=== PATIENT | female | born 1950 | race Caucasian/White ===

== ENCOUNTER 2020-06-09 08:03 | Outpatient (CLI) | payer MEDICARE, SELFPAY ==
--- NOTE | ~2020-06-09 | MR_ITS ---
EXAMINATION: MR lumbar spine wo [facility] EXAM DATE: 06/09/2020 08:47 INDICATION: Bilateral foot tingling, paresthesia since December, worsening. TECHNIQUE: Multi-sequential, multiplanar MR images of the lumbar spine were obtained without contrast . Sagittal T1, T2, T2 fat saturation images. Axial T2 weighted images. Comparison is made to prior examination from 12/29/2017. FINDINGS: There is moderate disc disease at L5-S1, mild to moderate L1-L3 and L4-5. There is 3 mm ant erolisthesis L4 on L5, 2 mm retrolisthesis L1 on L2 and L2 on L3. Some endplate degenerative signal c hanges L5-S1. The conus medullaris terminates at the L1/2 level and has normal signal intensity and m orphology. Paraspinal soft tissue is unremarkable. There are no suspicious marrow signal abnormaliti es. Level by level evaluation: T12-L1: Disc does not extend beyond the endplate margin. Facet arthropathy: Minimal. Neural foraminal stenosis: No stenosis. Central canal stenosis: No stenosis. L1-L2: There is a mild diffuse disc bulge. Facet arthropathy: Mild. Neural foraminal stenosis: Mild left. Central canal stenosis: Mild. L2-L3: There is a mild to moderate diffuse disc bulge. Facet arthropathy: Mild to moderate. Neural foraminal stenosis: Mild to moderate bilateral. Central canal stenosis: Mild to moderate. L3-L4: There is a mild diffuse disc bulge. Facet arthropathy: Mild to moderate. Neural foraminal stenosis: Mild to moderate bilateral, right greater than left. Central canal stenosis: Mild. L4-L5: There is a mild to moderate diffuse disc bulge. Facet arthropathy: Moderate to severe right, moderate left. Neural foraminal stenosis: Mild to moderate bilateral. Central canal stenosis: Mild to moderate. L5-S1: There is a mild to moderate diffuse disc bulge. Facet arthropathy: Mild to moderate. Neural foraminal stenosis: Moderate bilateral. Central canal stenosis: Mild to moderate. Compared to prior study, difficult to appreciate any significant interval change. IMPRESSION: 1. Overall moderate lumbar spondylosis as detailed above. Reviewed, dictated and finalized at location G.
== END 2020-06-09 08:04 | disposition home or self-care (01) ==
LOC: ANHIMG 08:07
PROVIDERS: PCP Family Medicine; Visit Provider Physician Assistant Medical
DX: R20.2 Paresthesia of skin (principal); M47.816 Spondylosis without myelopathy or radiculopathy, lumbar region
CPT/HCPCS: 72148

== ENCOUNTER → 2021-05-01 13:51 | Outpatient (CLI) | payer MEDICARE, SELFPAY ==
--- NOTE | ~2021-05-01 | XR_ITS ---
EXAMINATION: XR lumbar spine 2-3V DATE: 05/01/2021 14:10 INDICATION: Low back pain TECHNIQUE: Anteroposterior and lateral views of the lumbar spine, and cone-down lateral view of the l umbosacral junction were obtained. COMPARISON: MRI, 06/09/2020 FINDINGS: There are 4 mm of unchanged anterolisthesis of L4 on L5. There is stable moderate to severe loss of intervertebral disc space height at L5-S1. There is mild to moderate loss of vertebral disc space height at L1-2, L2-3, and L4-5. There is no fracture. The vertebral body heights are normal. Th ere is moderate facet osteoarthritis of the lower lumbar spine. A large volume of colonic stool is pr esent. IMPRESSION: 1. Moderate lumbar spondylosis without acute findings or significant interval change. Reviewed, dictated and finalized at location A.
== END ==
PROVIDERS: PCP Physician Assistant; Visit Provider Physician Assistant
DX: M47.26 Other spondylosis with radiculopathy, lumbar region (principal)
CPT/HCPCS: 72100

== ENCOUNTER → 2021-05-15 07:48 | Outpatient (CLI) | payer MEDICARE, SELFPAY ==
--- NOTE | ~2021-05-15 | MR_ITS ---
EXAMINATION: MR lumbar spine wo con DATE: 05/15/2021 08:26 INDICATION: Lumbar radiculopathy. TECHNIQUE: Magnetic resonance imaging (MRI) of the lumbar spine was performed without intravenous con trast. Sequences included sagittal T2-weighted FSE, sagittal T2-weighted FS FSE, sagittal T1-weighted FSE, and axial T2-weighted FSE. COMPARISON: Lumbar spine MRI 06/09/2020 FINDINGS: There is 3 mm retrolisthesis of L1 on L2 and L2 on L3 and 3 mm anterolisthesis of L4 on L5. There are Schmorl's nodes at multiple levels. There is moderately decreased disc height at L1-L2 and L2-L3, mildly decreased disc height at L3-L4 and L4-L5, and severely decreased disc height at L5-S1. The distal spinal cord signal intensity is normal. The conus medullaris is at L1. There is a 3.1 cm cyst in right kidney. The following disc levels are specifically discussed: L1-L2: The disc is bulging and has an annular fissure. There is mild bilateral facet joint osteoarthr itis. There is mild bilateral neural foraminal stenosis. There is mild central canal stenosis. L2-L3: The disc is bulging and has an annular fissure. There is mild bilateral facet joint osteoarthr itis. There is moderate bilateral neural foraminal stenosis. There is mild central canal stenosis. L3-L4: The disc is bulging. There is mild right and moderate left facet joint osteoarthritis. There i s moderate bilateral neural foraminal stenosis. There is mild central canal stenosis. L4-L5: The disc is bulging and has an annular fissure. There is severe bilateral facet joint osteoart hritis. There is mild bilateral neural foraminal stenosis. There is mild central canal stenosis. L5-S1: The disc is bulging and has an annular fissure. There is severe bilateral facet joint osteoart hritis. There is moderate bilateral neural foraminal stenosis. There is mild central canal stenosis. IMPRESSION: 1. Severe lumbar spondylosis, stable from 06/09/2020. Reviewed, dictated and finalized at location A.
== END ==
PROVIDERS: PCP Family Medicine; Visit Provider Physician Assistant
DX: M47.26 Other spondylosis with radiculopathy, lumbar region (principal)
CPT/HCPCS: 72148

== ENCOUNTER → 2021-05-20 14:07 | Outpatient (CLI) | payer MEDICARE, SELFPAY ==
--- NOTE | ~2021-05-20 | XR_ITS ---
EXAMINATION: XR hip LT min 2V DATE: 05/20/2021 14:26 INDICATION: Left hip pain. TECHNIQUE: 2 views of left hip were obtained. COMPARISON: Lumbar spine MRI 05/15/2021 FINDINGS: Bone alignment is normal. No fracture. Left hip joint space is normal. There is severe lumb ar spondylosis. IMPRESSION: 1. Normal left hip. Reviewed, dictated and finalized at location B. IMPRESSION: 1. Normal left hip.
== END ==
PROVIDERS: PCP Family Medicine; Visit Provider Family Medicine
DX: M25.559 Pain in unspecified hip (principal)
CPT/HCPCS: 73502

== ENCOUNTER 2023-04-27 12:26 | Outpatient (CLI) | payer MEDICARE, SELFPAY ==
--- NOTE | 2023-04-27 12:32 | ECG_ITS ---
Measurements Intervals [place] Rate: 70 P: 20 MN: 129 QRS: -5 QRSD: 87 T: 14 QT: 390 QTc: 423 Interpretive Statements SINUS RHYTHM BORDERLINE R WAVE PROGRESSION, ANTERIOR LEADS BORDERLINE T WAVE ABNORMALITY- ANTEROLAT/INF LEADS BASELINE ARTIFACT- I, II, III, AVR, AVL, AVF BORDERLINE ECG NO PREVIOUS ECG AVAILABLE FOR COMPARISON Electronically Signed On 04-27-2023 13:02:55 CDT by Julio Serrano D.O.
== END 2023-04-27 12:27 | disposition home or self-care (01) ==
PROVIDERS: PCP Family Medicine; Visit Provider Surgery
DX: E78.2 Mixed hyperlipidemia (principal); R94.31 Abnormal electrocardiogram [ECG] [EKG]
CPT/HCPCS: 93005

== ENCOUNTER 2023-05-03 01:38 | Day surgery (SDC) | payer MEDICARE, SELFPAY ==
--- NOTE | 2023-04-26 14:08 | PC.NURSE ---
Report to the Outpatient Waiting Room, entrance under the green pavilion located off [facility], at time _1000 on date __05/03/23 . Planned Procedure Time: ___1200 . Time changes happen often and if your time is changed the preop area will call you the afternoon before. - You and your visitor will be asked to self-screen and do not enter if you have any COVID symptoms. - A mask is optional within the hospital at this time. Patients may have clear liquids (water, carbonated beverages, clear teas, apple juice) until 3 hours prior to surgery with a maximum of 20 ounces. - No food from midnight until time of surgery - Infants may have breast milk until 4 hours before surgery, infant formula 6 hours prior to surgery. - Children will be allowed to drink immediately following surgery. If applicable, please bring a bottle or sippy cup to assist with drinking. Juice, water, soda, and popsicles are readily available. For infants on formula, please bring formula the day of surgery. Pacifiers are allowed. Take the following medications with a SIP of water the morning of surgery: ALPRAZOLAM IF NEEDED,LEVOTHYROXINE,VENLAFAXINE,SYMBICORT DO NOT STOP ANY OF YOUR OTHER PRESCRIPTION MEDICATIONS PRIOR TO SURGERY ?EXCEPT THE FOLLOWING Medications to discontinue per physician ____ALL VITAMINS/SUPPLEMENTS AND ALEVE LAST DOSE 04/25/23 PER PATIENT Please no make-up, nail citizen of [place], hairspray, perfume, deodorant, or body powder the day of surgery. No jewelry (including any body piercings) or valuables the day of surgery, leave them at home. Please take a shower or bath the night before, or the morning of, surgery with an antibacterial soap. Wear comfortable, loose fitting clothing. Children are encouraged to wear pajamas. - Jewelry must be removed prior to entering the operating room. Rings and piercings that are not removed may be cut off. - The hospital will not accept responsibility for valuables. - Please leave all valuables, including medications, at home the day of surgery. HIBICLENS SHOWER MORNING OF SURGERY If you are going home after surgery, a licensed bulk tank driver must drive you home. - NO public transportation without another adult if you receive anesthesia. - We recommend that an adult stay with you for 24 hours following discharge. - We also recommend that you do not drive, make important decision, drink alcoholic beverages, or take any drugs that were not prescribed by your health care provider for at least 24 hours after your discharge time. For Pediatric surgeries, we recommend two adults accompany the child home. Follow any additional instructions given to you from your surgeon. If you or anyone in your household have experienced Covid symptoms in the past week, please notify your surgeon or the nurse liaison at the phone number below for possible testing. Telephone instructions given to ___PATIENT and asked if any additional questions and then verbalized understanding. Patient advised to call surgeon office or pre surgery nurse liaison [phone] if any additional questions.
[2023-04-26 14:16] VITALS: BMI 25.4
[2023-05-03] VITALS (8 sets, daily range): BP systolic 103–148; BP diastolic 55–67; PULSE 68–75; RESP 12–16; TEMP 36.2–36.4; O2SAT 97–100
--- NOTE | 2023-05-03 09:10 | WPDANESEPPF ---
Anes - Initial Pre Proc Eval Procedure: Operation Date: 05/03/23 12:00 Proposed Procedures p Excision of Left Abdominal Mass, Excision of Umbilical Cyst, - Sohail Bonds DO s Possible Umbilical Hernia Repair - Sohail Bonds DO Date/Time: 05/03/23 09:10 Surgeon: Sohail Bonds DO Pre Op Diagnosis: umbil cyst 1.cm umbil.hernia, abdominal mass 1.5cm Patient Data Age: 72 Gender: F Height: 1.63 m Weight: 67.2 kg Allergies Allergy/AdvReac Type Severity Reaction Status Date / Time amoxicillin Allergy Unknown rash Verified 05/03/23 10:28 atorvastatin Allergy Unknown Muscle pain Verified 05/03/23 10:28 cefaclor Allergy Unknown urticaria Verified 05/03/23 10:28 clarithromycin Allergy Unknown rash Verified 05/03/23 10:28 doxycycline Allergy Unknown Confusion Verified 05/03/23 10:28 erythromycin base Allergy Unknown Hypotension Verified 05/03/23 10:28 shrimp Allergy Unknown Hives Verified 05/03/23 10:28 vilazodone Allergy Unknown intoler Verified 05/03/23 10:28 ORAL DYE AdvReac Intermediate CONFUSION Uncoded 04/26/23 13:48 Home Medications Medication Instructions Recorded Confirmed Type ProAir HFA 90 mcg/actuation 2 inhalation inhalation Q6-8H PRN 12/28/19 05/03/23 Rx aerosol inhaler (albuterol sulfate) bronchospasm #8.5 grams loratadine 10 mg tablet (Claritin) 10 mg PO DAILY 11/12/20 05/03/23 History meclizine 25 mg tablet 25 mg PO PRN PRN NAUSEA/VOMITING 11/12/20 05/03/23 History naproxen sodium 220 mg tablet 220 mg PO BID PRN Pain 11/12/20 05/03/23 History (Aleve) psyllium seed (sugar) oral powder 1 tbsp PO DAILY 11/12/20 05/03/23 History (Metamucil (sugar) oral powder) zinc acetate 50 mg (zinc) capsule 50 mg PO DAILY 11/12/20 05/03/23 History (Galzin) venlafaxine 75 mg tablet See Rx Instructions .Route 05/21/22 05/03/23 Rx .COMPLEX #180 tabs alprazolam 0.25 mg tablet 0.25 mg PO BID #60 tabs 12/01/22 05/03/23 Rx budesonide-formoterol HFA 160 2 puff inhalation Q12H #10.2 grams 02/08/23 05/03/23 Rx mcg-4.5 mcg/actuation aerosol inhaler (Symbicort) levothyroxine 25 mcg tablet See Rx Instructions .Route 04/21/23 05/03/23 Rx .COMPLEX #100 tabs cholecalciferol (vitamin D3) 50 50 mcg PO DAILY 04/26/23 05/03/23 History mcg (2,000 unit) capsule imgaqbbf-[id number]-[id number] C 250 3 tablet PO DAILY 04/26/23 05/03/23 History mg-herbal no.124 11.66 mg chewable tablet (Airborne Gummy) omeprazole 20 mg capsule,delayed 20 mg PO DAILY 04/26/23 05/03/23 History release pitavastatin calcium 1 mg tablet 1 mg PO QMWF 04/26/23 05/03/23 History (Livalo) vitamin B complex 1 cap PO DAILY 04/26/23 05/03/23 History Patient hx anesthesia problems: none Family hx anesthesia problems: none Results Review: All pre-operative results and documents have been reviewed as part of the pre-operative evaluation. [facility] Past Medical History Medical History (Updated 05/03/23 @ 09:10 by Mike Gamboa, ) Acid reflux Actinic keratoses Actinic keratosis due to exposure to sunlight Anxiety Arthritis Asthma Asthmatic bronchitis Cataract, bilateral Cervical radiculopathy Diverticulosis Hypothyroidism, unspecified Migraines Mixed hyperlipidemia Osteopenia Piriformis syndrome Seborrheic keratoses, inflamed Torn meniscus Trochanteric bursitis left Vertigo Surgical History Surgical History History of breast biopsy History of dilation and curettage History of endometrial ablation History of hysterectomy, supracervical History of tubal ligation [place] teeth removed Family History Family History Mother Hypertension Cerebrovascular accident Father Hypertension Cerebrovascular accident High cholesterol Social History Social History Smoking packs per day: 1 Smoking cigarettes per day: 20.0 Years
[2023-05-03] MEDS: LACTATED RINGERS 1,000 ML 30 ML IV CONT (10:39)
[2023-05-03] MEDS: KETOROLAC 15 MG/ML VIAL (*BKC) IV PUSH (10:57)
[2023-05-03] MEDS: ACETAMINOPHEN 500 MG TABLET 1000 MG PO (10:58)
--- NOTE | 2023-05-03 11:42 | WPDHPUPDATE1 ---
History and Physical Update Update Date/Time: 05/03/23 11:42 History and Physical has been reviewed, including an updated exam of the patient. There are NO changes in the patient's condition. Risks, benefits, and alternatives have been discussed and questions answered. Patient agrees to proceed with procedure.
[2023-05-03] MEDS: ceFAZolin 2 GM/D5W 50 ML 2 GM/50 ML BAG IVPB (11:59)
[2023-05-03] MEDS: LIDO 1%/EPINEPHRINE 1:100,000 50 ML VIAL 30 ML INFILTRATE (12:20)
--- NOTE | 2023-05-03 12:42 | W.PM.PROC2 ---
Procedure Note - Detailed Date of Procedure 05/03/23 Pre-op Diagnosis 1. 1 cm umbilical cyst 2. Umbilical hernia 3. 1.5 cm left subcostal abdominal wall mass Post-op Diagnosis Same Procedure Performed 1. Open 1 cm umbilical hernia repair 2. Excision of 1 cm umbilical cyst 3. Excision of 1.5 cm left subcostal abdominal wall mass Surgeon Sohail Bonds, DO Anesthesia General and Local (0.5% bupivacaine with epinephrine) Indications This is a 72-year-old woman who presented with abdominal wall mass in the left subcostal region and periumbilical region. She had some pain with activity in the periumbilical region as well. She was found to have a 1 cm umbilical cyst but also appeared to have a slight defect just deep to this consisting of likely umbilical hernia containing fatty tissue. She also had a 1.5 cm left subcostal abdominal wall mass that was consistent a lipoma. Discussions were made with the patient about treatment options and decision was made to proceed with excision of the 1 cm umbilical cyst, excision of 1.5 cm left upper quadrant abdominal wall mass, and possible open umbilical hernia repair. Findings A 1.5 cm subcutaneous lipoma was identified in the left subcostal region. The 1 cm umbilical cyst was excised and just deep to this there did appear to be a 1 cm umbilical hernia. The umbilical hernia was repaired using Ethibond ouztgt-em-[id number] sutures. Description of Procedure Procedure as well as risks, benefits, and alternatives were discussed with the patient. Written consent was obtained and placed in chart prior to procedure. Patient was brought back to surgical suite. She was placed in supine position on the operating table. Time-out was done to confirm patient and procedure. She was then intubated by the anesthesia department. Her abdomen was prepped and draped in sterile fashion using chlorhexidine prep. A% bupivacaine with epinephrine was infiltrated locally around the 2 areas concern. A 2 cm oblique incision was made in the left subcostal region directly over the mass using a 15 blade scalpel. Electrocautery was used for hemostasis and for dissection through the subcutaneous tissue. Mass was identified and appeared to be a lipoma. This was excised completely using electrocautery. He was removed and sent to the lab for pathology. The wound edges were then inspected hemostasis appeared adequate. Obi's fascia was reapproximated using 3-0 Vicryl simple interrupted sutures. Skin was then approximated using 4 Monocryl running subcuticular suture. Exofin glue was then applied on top. I then moved over to the umbilical region. A 1 cm elliptical incision was made using a 15 blade scalpel around the umbilical cyst. The cyst was sharply excised using the 15 blade scalpel. He was removed and sent to lab for pathology. The wound edges were inspected and hemostasis was achieved with electrocautery. I then inspected just deep to this and there did appear to be a hernia sac and small 1 cm umbilical hernia. The hernia sac was reduced and the fascial edges were cleared circumferentially using electrocautery. This appeared small enough to repair primarily. 0 Ethibond bxnhpe-de-ovuha sutures were placed to approximate the fascia in a transverse fashion. A total of 2 sutures were placed to bring the fascia together without tension. The sutures were tied down in place. The repair was inspected and appeared secured. The umbilical stalk was then reapproximated to the fascia using a 3-0 Vicryl simple interrupted suture. Deep dermis was approximated using 3-0 Vicryl simple interrupted sutures. Skin edges were then reapproximated using 4-0 Monocryl running subcuticular suture. Exofin glue was then applied on top patient was then awakened from anesthesia extubated, and transferred Estimated Blood Loss 5 Pathology Yes (Left upper quadrant abdominal wall mass, umbilical cyst) Complications No immediate complications Condition Stable Disp
[2023-05-03] MEDS: ONDANSETRON INJ 4 MG/2 ML VIAL IV PUSH (13:50)
== END 2023-05-03 14:42 | disposition home or self-care (01) ==
PROVIDERS: PCP Family Medicine; Visit Provider Surgery
PROC: (CPT 22902; principal; 2023-05-03 12:00)
PROC: (CPT 22902; 2023-05-03 12:00)
DX: K42.9 Umbilical hernia without obstruction or gangrene (principal); D17.1 Benign lipomatous neoplasm of skin and subcutaneous tissue of trunk; E78.2 Mixed hyperlipidemia; L72.0 Epidermal cyst; F41.9 Anxiety disorder, unspecified; J45.909 Unspecified asthma, uncomplicated; Z79.51 Long term (current) use of inhaled steroids; Z87.891 Personal history of nicotine dependence
CPT/HCPCS: 22902; 49591; 88304; 88305; A9270; J0690; J1100; J1885; J2405; J2704; J3010; J7120

== ENCOUNTER 2023-11-04 05:54 | Day surgery (SDC) | payer MEDICARE, SELFPAY ==
[2023-10-15 09:26] VITALS: BMI 25.7
[2023-10-18 13:48] VITALS: BMI 25.7
--- NOTE | 2023-11-03 10:45 | WPDANESEPPF ---
Anes - Initial Pre Proc Eval Procedure: Operation Date: 11/04/23 08:00 Proposed Procedures p Colonoscopy - Kishore Morgan MD Date/Time: 11/03/23 10:45 Surgeon: Kishore Morgan MD Pre Op Diagnosis: Neoplasia screening Patient Data Age: 72 Gender: F Height: 1.63 m Weight: 68 kg Allergies Allergy/AdvReac Type Severity Reaction Status Date / Time amoxicillin Allergy Unknown rash Verified 11/04/23 06:52 atorvastatin Allergy Unknown Muscle pain Verified 11/04/23 06:52 cefaclor Allergy Unknown urticaria Verified 11/04/23 06:52 clarithromycin Allergy Unknown rash Verified 11/04/23 06:52 doxycycline Allergy Unknown Confusion Verified 11/04/23 06:52 shrimp Allergy Unknown Hives Verified 11/04/23 06:52 Home Medications Medication Instructions Recorded Confirmed Type loratadine 10 mg tablet (Claritin) 10 mg PO DAILY 11/12/20 11/04/23 History naproxen sodium 220 mg tablet 220 mg PO BID PRN Pain 11/12/20 11/04/23 History (Aleve) psyllium seed (sugar) oral powder 1 tbsp PO DAILY 11/12/20 11/04/23 History (Metamucil (sugar) oral powder) zinc acetate 50 mg (zinc) capsule 50 mg PO DAILY 11/12/20 11/04/23 History (Galzin) cholecalciferol (vitamin D3) 50 50 mcg PO DAILY 04/26/23 11/04/23 History mcg (2,000 unit) capsule kwvdzwim-ibrhmwhz-wnn C 250 3 tablet PO DAILY 04/26/23 11/04/23 History mg-herbal no.124 11.66 mg chewable tablet (Airborne Gummy) vitamin B complex 1 cap PO DAILY 04/26/23 11/04/23 History budesonide-formoterol HFA 160 2 puff inhalation Q12H #10.2 grams 06/10/23 11/04/23 Rx mcg-4.5 mcg/actuation aerosol inhaler (Symbicort) albuterol sulfate 90 mcg/actuation 2 inh inhalation Q4H PRN shortness 06/14/23 11/04/23 Rx aerosol inhaler of breath or wheezing #8.5 grams esomeprazole magnesium 20 mg 20 mg PO DAILY 06/14/23 11/04/23 History capsule,delayed release meclizine 25 mg tablet 25 mg PO TID PRN NAUSEA/VOMITING 06/15/23 11/04/23 Rx #90 tabs levothyroxine 25 mcg tablet See Rx Instructions .Route 07/19/23 11/04/23 Rx .COMPLEX #100 tabs alprazolam 0.25 mg tablet 0.25 mg PO BID #60 tabs 07/21/23 11/04/23 Rx sodium,potassium,mag sulfates 17.5 See Rx Instructions PO .COMPLEX 10/15/23 11/04/23 Rx gram-3.13 gram-1.6 gram oral soln #354 mL (Suprep Bowel Prep Kit) venlafaxine 75 mg tablet See Rx Instructions .Route 10/28/23 11/04/23 Rx .COMPLEX #180 tabs Patient hx anesthesia problems: none Family hx anesthesia problems: none Results Review: All pre-operative results and documents have been reviewed as part of the pre-operative evaluation. [facility] Past Medical History Medical History Acid reflux Actinic keratoses Actinic keratosis due to exposure to sunlight Anxiety Arthritis Asthma Asthmatic bronchitis Cataract, bilateral Cervical radiculopathy Diverticulosis Hypothyroidism, unspecified Migraines Mixed hyperlipidemia Osteopenia Piriformis syndrome Seborrheic keratoses, inflamed Torn meniscus Trochanteric bursitis left Vertigo Surgical History Surgical History H/O excision of mass exc 1.5cm lt abd wall mass, exc 1cm umb cyst,umb hernia rep performed 05/03/23 History of breast biopsy History of dilation and curettage History of endometrial ablation History of hysterectomy, supracervical History of tubal ligation [place] teeth removed Family History Family History Mother Hypertension Cerebrovascular accident Father Hypertension Cerebrovascular accident High cholesterol Social History Social History (Updated 08/03/23 @ 14:10 by Violeta Clarke MA) Smoking packs per day: 1 Smoking cigarettes per day: 20.0 Years smoked: 8 Smoking pack-years: 8.00 Smoking status: Former smoker Tobacco type: cigarettes Smoking end date: 10/04/79 Alcohol in
[2023-11-04 06:55] VITALS: BP 120/76; PULSE 85; RESP 20; TEMP 37.2; O2SAT 97
--- NOTE | 2023-11-04 07:07 | PM.HPGS ---
History of Present Illness History of Present Illness Consent: Risks, benefits, and alternatives have been discussed and questions answered. Patient agrees to proceed with procedure. Chief complaint: Neoplasia screening Narrative: Kyrie Flores is a 72 year old female presents for screening colonoscopy. Patient's current weight appetite and bowel movements are normal. Patient denies abdominal pain. She has had no bleeding. Family history noncontributory. Previous colonoscopy in [address] Kingsley. Review of Systems Review of Systems: Review of systems is noncontributory. [facility] Past Medical History Medical History Acid reflux Actinic keratoses Actinic keratosis due to exposure to sunlight Anxiety Arthritis Asthma Asthmatic bronchitis Cataract, bilateral Cervical radiculopathy Diverticulosis Hypothyroidism, unspecified Migraines Mixed hyperlipidemia Osteopenia Piriformis syndrome Seborrheic keratoses, inflamed Torn meniscus Trochanteric bursitis left Vertigo Surgical History Surgical History H/O excision of mass exc 1.5cm lt abd wall mass, exc 1cm umb cyst,umb hernia rep performed 05/03/23 History of breast biopsy History of dilation and curettage History of endometrial ablation History of hysterectomy, supracervical History of tubal ligation Charlo teeth removed Family History Family History Mother Hypertension Cerebrovascular accident Father Hypertension Cerebrovascular accident High cholesterol Social History Social History (Updated 08/03/23 @ 14:10 by Violeta Clarke MA) Smoking packs per day: 1 Smoking cigarettes per day: 20.0 Years smoked: 8 Smoking pack-years: 8.00 Smoking status: Former smoker Tobacco type: cigarettes Smoking end date: 10/04/79 Alcohol intake: current Alcohol use details: 1 or 2 a week Substance use: never Substance use type: does not use Lack of Transportation: No Lack of Food: Never True Current Housing: I Have Housing Concerned About Future Housing: No Difficulty Paying Gas/Electric Bills: No Difficulty Paying for Meds: No Currently Unemployed: No Education: Bachelor's Degree Difficulty w/ Childcare or Family Care: No Living arrangements: with family Spiritual care concerns: No Meds Home Medications and Allergies Home Medications Medication Instructions Recorded Confirmed Type loratadine 10 mg tablet (Claritin) 10 mg PO DAILY 11/12/20 11/04/23 History naproxen sodium 220 mg tablet 220 mg PO BID PRN Pain 11/12/20 11/04/23 History (Aleve) psyllium seed (sugar) oral powder 1 tbsp PO DAILY 11/12/20 11/04/23 History (Metamucil (sugar) oral powder) zinc acetate 50 mg (zinc) capsule 50 mg PO DAILY 11/12/20 11/04/23 History (Galzin) cholecalciferol (vitamin D3) 50 50 mcg PO DAILY 04/26/23 11/04/23 History mcg (2,000 unit) capsule kuziarys-afishgyd-tdl C 250 3 tablet PO DAILY 04/26/23 11/04/23 History mg-herbal no.124 11.66 mg chewable tablet (Airborne Gummy) vitamin B complex 1 cap PO DAILY 04/26/23 11/04/23 History budesonide-formoterol HFA 160 2 puff inhalation Q12H #10.2 grams 06/10/23 11/04/23 Rx mcg-4.5 mcg/actuation aerosol inhaler (Symbicort) albuterol sulfate 90 mcg/actuation 2 inh inhalation Q4H PRN shortness 06/14/23 11/04/23 Rx aerosol inhaler of breath or wheezing #8.5 grams esomeprazole magnesium 20 mg 20 mg PO DAILY 06/14/23 11/04/23 History capsule,delayed release meclizine 25 mg tablet 25 mg PO TID PRN NAUSEA/VOMITING 06/15/23 11/04/23 Rx #90 tabs levothyroxine 25 mcg tablet See Rx Instructions .Route 07/19/23 11/04/23 Rx .COMPLEX #100 tabs alprazolam 0.25 mg tablet 0.25 mg PO BID #60 tabs 07/21/23 11/04/23 Rx sodium,potassium,mag sulfates 17.5 See
[2023-11-04] MEDS: LACTATED RINGERS 1,000 ML 150 ML IV CONT (07:09)
[2023-11-04 08:10] VITALS: BP 135/73; PULSE 72; RESP 16; O2SAT 94
[2023-11-04 08:20] VITALS: BP 125/71; PULSE 74; RESP 16; O2SAT 98
[2023-11-04 08:30] VITALS: BP 113/68; PULSE 68; RESP 16; O2SAT 98
--- NOTE | 2023-11-04 11:30 | WPDANESPN ---
Anes - Prog Note Post-Op Date/Time: 11/04/23 11:30 Cardiovascular status: normal Respiratory status: normal Airway patency: baseline Mental status: baseline Post-Op hydration status: normal Vital Signs: Last Vital Signs Temp 37.2 C 11/04/23 06:55 Pulse 68 11/04/23 08:30 Resp 16 11/04/23 08:30 BP 113/68 11/04/23 08:30 Pulse Ox 98 11/04/23 08:30 O2 Del Method Room Air 11/04/23 08:30 Pain Score (VAS): 0 I/O: Intake & Output 11/03/23 11/04/23 11/04/23 23:59 07:59 15:59 Intake Total 700 Balance 700 Post-procedural complaints: none Patient Feedback: Patient satisfied with anesthetic care. Other Findings: Patient vital signs back to baseline. Patient denies nausea and vomiting. Patient's pain under control. Patient OK for discharge.
== END 2023-11-04 08:45 | disposition home or self-care (01) ==
PROVIDERS: PCP Internal Medicine; Visit Provider Internal Medicine Gastroenterology
PROC: 0DJD8ZZ Inspection of Lower Intestinal Tract, Via Natural or Artificial Opening Endoscopic (ICD-10-PCS; CPT 45378; principal; 2023-11-04 08:00)
DX: Z12.11 Encounter for screening for malignant neoplasm of colon (principal); K57.30 Diverticulosis of large intestine without perforation or abscess without bleeding; K64.8 Other hemorrhoids
CPT/HCPCS: 45378

== ENCOUNTER 2024-07-02 15:24 | Emergency (ER) | payer OTHER, SELFPAY ==
[2024-07-02 15:39] VITALS: BP 149/78; PULSE 72; RESP 16; TEMP 36.3; O2SAT 98
--- NOTE | 2024-07-02 19:19 | ED.ANIMALBIT ---
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 She is working on a cat today draining abscess the animal had. And was initially very calm and cooperative and after the procedure to reassess the area she palpated the area where the abscess was drained and the cat turned around and bit the patient on the hand twice. She has 2 minor punctate wounds on the ulnar aspect of the right hand, proximal to the PIP joint of the pinky and proximal to the wrist at the ulnar aspect. No redness, swelling, erythema or drainage. No bleeding. Has full range of motion of extremity. No fever, chills or other systemic signs of infection. Was otherwise in her normal state of health. Her tetanus is up-to-date. The animal was a domestic house cat which was up-to-date on rabies. Related Data Home Medications Medication Instructions Recorded Confirmed loratadine 10 mg tablet (Claritin) 10 mg PO DAILY 11/12/20 11/04/23 naproxen sodium 220 mg tablet 220 mg PO BID PRN Pain 11/12/20 11/04/23 (Aleve) psyllium seed (sugar) oral powder 1 tbsp PO DAILY 11/12/20 11/04/23 (Metamucil (sugar) oral powder) zinc acetate 50 mg (zinc) capsule 50 mg PO DAILY 11/12/20 11/04/23 (Galzin) cholecalciferol (vitamin D3) 50 50 mcg PO DAILY 04/26/23 11/04/23 mcg (2,000 unit) capsule wfhteuwb-vridrzjd-mkx C 250 3 tablet PO DAILY 04/26/23 11/04/23 mg-herbal no.124 11.66 mg chewable tablet (Airborne Gummy) vitamin B complex 1 cap PO DAILY 04/26/23 11/04/23 esomeprazole magnesium 20 mg 20 mg PO DAILY 06/14/23 11/04/23 capsule,delayed release Allergies Allergy/AdvReac Type Severity Reaction Status Date / Time amoxicillin Allergy Unknown rash Verified 11/04/23 06:52 atorvastatin Allergy Unknown Muscle pain Verified 11/04/23 06:52 cefaclor Allergy Unknown urticaria Verified 11/04/23 06:52 clarithromycin Allergy Unknown rash Verified 11/04/23 06:52 doxycycline Allergy Unknown Confusion Verified 11/04/23 06:52 shrimp Allergy Unknown Hives Verified 11/04/23 06:52 Review of Systems Review of Systems: As reviewed above [facility] Past Medical History Medical History Acid reflux Actinic keratoses Actinic keratosis due to exposure to sunlight Anxiety Arthritis Asthma Asthmatic bronchitis Cataract, bilateral Cervical radiculopathy Diverticulosis Hypothyroidism, unspecified Migraines Mixed hyperlipidemia Osteopenia Piriformis syndrome Seborrheic keratoses, inflamed Torn meniscus Trochanteric bursitis left Vertigo Surgical History Surgical History H/O excision of mass exc 1.5cm lt abd wall mass, exc 1cm umb cyst,umb hernia rep performed 05/03/23 History of breast biopsy History of dilation and curettage History of endometrial ablation History of hysterectomy, supracervical History of tubal ligation Lorraine teeth removed Family History Family History Mother Hypertension Cerebrovascular accident Father Hypertension Cerebrovascular accident High cholesterol Social History Social History Smoking packs per day: 1 Smoking cigarettes per day: 20.0 Years smoked: 8 Smoking pack-years: 8.00 Smoking status: Former smoker Tobacco type: cigarettes Smoking end date: 10/04/79 Alcohol intake: current Alcohol use details: 1 or 2 a week Substance use: never Substance use type: does not use Lack of Transportation: No Lack of Food: Never True Current Housing: I Have Housing Concerned About Future Housing: No Difficulty Paying Gas/Electric Bills: No Difficulty Paying for Meds: No Currently Unemployed:
[2024-07-02] MEDS: MOXIFLOXACIN HCL 400 MG TABLET PO (19:30)
== END 2024-07-02 19:36 | disposition home or self-care (01) ==
PROVIDERS: Emergency Provider Student in an Organized Health Care Education/Training Program; PCP Internal Medicine
DX: S61.451A Open bite of right hand, initial encounter (principal); J45.909 Unspecified asthma, uncomplicated; E03.9 Hypothyroidism, unspecified; E78.2 Mixed hyperlipidemia; M19.90 Unspecified osteoarthritis, unspecified site; M85.80 Other specified disorders of bone density and structure, unspecified site; K21.9 Gastro-esophageal reflux disease without esophagitis; F41.9 Anxiety disorder, unspecified; Z87.891 Personal history of nicotine dependence; Z90.711 Acquired absence of uterus with remaining cervical stump; Z79.899 Other long term (current) drug therapy; W55.01XA Bitten by cat, initial encounter
CPT/HCPCS: 99283; A9270

== ENCOUNTER 2025-07-24 09:30 | Outpatient (CLI) | payer MEDICARE, SELFPAY ==
--- NOTE | ~2025-07-24 | MM_ITS ---
EXAMINATION: MM screening [facility] BI w doron INDICATION: Asymptomatic, referred for screening mammogram COMPARISON: None available TECHNIQUE: Digital Breast Tomosynthesis CC, MLO views of Both breasts were obtained with computer-aided detection to assist in interpretation of the study. FINDINGS: There are scattered areas of fibroglandular density. There is a focal asymmetry in the retroareolar right breast at anterior third. There is an asymmetry seen on the cc view in the retroareolar right breast at middle third. There is a focal asymmetry in the inferior medial left breast at anterior third. There is an asymmetry seen on the cc view in the Medial left breast at middle third. Elsewhere, there are no mammographic features of malignancy. IMPRESSION: 1. Right breast asymmetries. 2. Left breast asymmetries. RECOMMENDATION: Prior outside imaging should BE obtained for comparison. Otherwise, Bilateral breast Diagnostic mammogram with true lateral, appropriate spot compression views and ultrasound if needed. BI-RADS Category 0: Incomplete: Needs additional imaging evaluation. Reviewed, dictated and finalized at location B. IMPRESSION: 1. Right breast asymmetries. 2. Left breast asymmetries. RECOMMENDATION: Prior outside imaging should BE obtained for comparison. Otherwise, Bilateral b reast Diagnostic mammogram with true lateral, appropriate spot compression view s and ultrasound if needed. BI-RADS Category 0: Incomplete: Needs additional imaging evaluation.
--- OUTSIDE RECORDS SUMMARY | 2025-07-24 10:59 | XMS_ITS | Clinical Summary ---
Author Organization [facility] [address] Address [address] [place] [address] Care Team Providers Care Behavioral Health Assistant Name Role Phone Jaime Keating MD Primary Care Provider [phone] Allergies Active Allergy Reactions Criticality Noted Date Comments Amoxicillin Rash Medium 02/09/2018 Atorvastatin Muscle pain Medium 05/03/2023 Biotin Rash Medium 02/09/2018 Cefaclor Rash Medium 02/09/2018 Doxycycline Mental status changes Low 05/03/2023 Erythromycin Other (See comments) Medium 02/09/2018 hypotension Shrimp Rash Medium 02/09/2018 Medications cyanocobalamin (Vitamin B-12) 1,000 mcg tabletIndications: Prevention of Vitamin B12 Deficiency Take 1 tablet (1,000 mcg total) by mouth daily Active zinc gluconate 50 mg tablet Take 1 tablet (50 mg total) by mouth daily Active cholecalciferol (VITAMIN D-3) 2000 unit capsule 1 capsule (2,000 Units total) Active loratadine (CLARITIN REDITABS) 10 mg disintegrating tablet Take 1 tablet (10 mg total) by mouth daily Active esomeprazole DR (NexIUM) 40 mg capsule Take 1 capsule (40 mg total) by mouth daily before breakfast Active venlafaxine (EFFEXOR) 75 mg tablet TAKE 1 TABLET BY MOUTH TWICE DAILY 120 tablet 5 01/05/[address] (NexIUM) 40 mg capsule Take 1 capsule (40 mg total) by mouth 2 (two) times a day before breakfast and dinner 180 capsule 03/07/20 25 Active levothyroxine (SYNTHROID) 25 mcg tablet TAKE 1 TABLET BY MOUTH EARLY IN THE MORNING BEFORE BREAKFAST 100 tablet 2 05/01/20 25 Active ALPRAZolam (XANAX) 0.25 mg tablet Take 1 tablet (0.25 mg total) by mouth 3 (three) times a day as needed for anxiety 90 tablet 06/28/20 25 Active ALPRAZolam (XANAX) 0.25 mg tablet Take 1 tablet (0.25 mg total) by mouth 3 (three) times a day as needed for anxiety 90 tablet 05/27/20 25 025 Discontinu ed(Reorder ) nitrofurantoin monohydrate (Macrobid) 100 mg capsuleIndications :Acute cystitis with hematuria Take 1 capsule (100 mg total) by mouth 2 (two) times a day for 5 days 10 capsule 06/28/20 25 025 Active Problems Problem Noted Date Diagnosed Date Nausea and vomiting 03/01/2025 Abdominal pain 03/01/2025 Hiatal hernia 03/01/2025 Gastroesophageal reflux disease without esophagi tis 03/01/2025 Encounters Date Type Department Care Team Description 06/30/2025 Results Follow-Up [facility] at [address] [phone] Lashaun Jackson NP Urine culture Urine, clean voided 06/28/2025 10:00 AM CDT Office Visit [facility] [address] [phone] Malathi Ramírez NP Acute cystitis with hematuria (Primary Dx) 06/28/2025 9:59 AM CDT - 06/28/2025 11:59 PM [place] [address] Acute cystitis with hematuria Discharge Disposition: Discharge to home or self care from Last 3 Months Immunizations Immunization Administration Dates Next Due Influenza, Quad, Adjuvantate d, Intramuscular 06/21/2022 Influenza, Quadrivalent, Hig h Dose, Preservative Free, Intrr 08/03/2023,07/17/2021 Influenza, Quadrivalent, Rec ombinant, Egg Free, Preservative Free, Intramuscular 07/17/2019,08/08/2018 Influenza, Trivalent, High D ose, Split, Preservative Free, Intramuscular 07/17/2015,07/16/2014,07/07/2011 Pneumococcal Polysaccharide PPV23 08/08/2018 RSV, Bivalent, Protein Subun it Rsvpref, Diluent (Abrysvo) 08/04/2023 TD Preservative Free 07/04/2020 ZOSTER LIVE 11/08/2014 ZOSTER Recombinant 12/15/2021,10/13/2021 Surgical History Surgery Date Site/Laterality Comments HYSTERECTOMY DILATION AND CURETTAGE OF UTERUS BUNIONECTOMY HERNIA REPAIR COLONOSCOPY UPPER GASTROINTESTINAL ENDOSCOPY Medical History Medical History Date Comments Anxiety Depression Thyroid disease Family History Medical History Relation Name Comments Alcohol abuse Father Family history of alcoholism - (Added by TW Conv) COPD Father Family history of chronic obstructive pulmonary disease - (Added by TW Conv) Heart disease Father Family history of cardiac disorder - (Added by TW Conv) Hypertension Father Family history of hypertension - (Added by TW Conv) Stroke Father Family history of cerebrovascular accident (CVA) - (Added by TW Conv) Heart disease Mother Family history of cardiac disorder - (Added by TW Conv) Hypertension Mother Family history of hypertension - (Added by TW Conv) Stroke Mother Family history of cerebrovascular accident (CVA) - (Added by TW Conv) Relation Name Status Comments Father Mother Social History Tobacco Use Types Packs/Day Years Used Date Smoking Tobacco: Former Tobacco Cessation:Counseling Given: Not Answered AUDIT-C Answer Date Recorded Q1: How often do you have a drink containing alc ohol? 2-4 times a month 03/07/2025 Q2: How many drinks containi ng alcohol do you have on a typical day when you are drinking? 1 or 2 03/07/2025 Frequency of Binge Drinking Not on file 01/2025 Personal Safety Answer Date Recorded Have you ever been in or are you currently in a harmful physical or emotional relationship or is someone making you feel afraid or unsafe? 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 Gender Identity Not on file Sexual Orientation Not on file Obstetrics History Last Filed Vital Signs Vital Sign Reading Time Taken Comments Blood Pressure 129/76 06/28/2025 9:53 AM CDT Pulse 74 06/28/2025 9:53 AM CDT Temperature 36.5 C (97.7 F) 06/28/2025 9:53 AM CDT Respiratory Rate 20 06/28/2025 9:53 AM CDT Oxygen Saturation 97% 06/28/2025 9:53 AM CDT Inhaled Oxygen Concentration - - Weight 62 kg (136 lb 9.6 oz) 06/28/2025 9:53 AM CDT Height 164.6 cm (5' 4.8) 03/07/2025 10:45 AM CD T Body Mass Index 22.87 03/07/2025 10:45 AM CDT Plan of Treatment Scheduled Procedures Name Priority Associated Diagnoses Date/Ti me ESOPHAGOGASTRODUODENOSCOPY Open Access Nausea and vomiting, unspecified vomiting type Abdominal pain Hiatal hernia Gastroesophageal reflux disease without esophagitis Health Maintenance Due Date Last Done Comments Depression Screening 1950 Hepatitis C Screening 1950 Hepatitis B Screening 1968 Well Visit 65+ 12/18/2015 DTaP/Tdap/Td Vaccine (1 - Tdap) 07/05/2020 0 Breast Cancer Screening-Mammogram 02/13/2025 024 Covid-19 Vaccine (2024-2 6 season) 2025 08/10/2023, 06/21/2022, 01/13/2022, Additional history exists Influenza Vaccine (#1) 2025 , 06/21/2022, 07/17/2021, Additional history exists Osteoporosis Screening-Bone Density Scan 02/13/2026 02/14/2024 Fall Risk Assessment 03/07/2026 03/07/2025 Colon Cancer Screening-Colonoscopy 11/04/20332023 Pneumococcal vaccine 65+ Completed 08/08/2018, 11/04 Zoster Vaccine Completed 12/15/2021, 10/04, 11/08/2014 Procedures Procedure Name Priority Date/Time Associated Diagnosis Comments POCT URINALYSIS DIPSTICK Routine 06/28/2025 10:06 AM CDT Acute cystitis with hematuria URINE CULTURE Routine 06/28/2025 9:30 AM CDT Acute cystitis with hematuria from Last 3 Months Results * (ABNORMAL) POCT urinalysis dipstick (06/28/2025 10:06 AM CDT) Color, Urine, POC Yellow Clarity, ur, POC Cloudy(A) Clear Glucose, ur, POC Negative Negative Bilirubin, ur, POC Negative Negative Ketones, ur, POC Negative Negative Specific [place], POC 1.020 1.003 - 1.030 Blood, ur, POC Large(A) Negative pH, ur, POC 7.5 5.0 - 8.0 Protein, ur, POC 100.(A) Negative Urobilinogen, urine, POC 0.2 0.2 - 1.0 mg/dL Nitrite, ur, POC Negative Negative Leukocytes, ur, POC Large(A) Negative Lot Number [id number] Urine 06/28/2025 10:0 6 AM CDT Malathi Ramírez NP POINT OF CARE TEST ORDERABLES Final Result * (ABNORMAL) Urine culture Urine, clean voided (06/28/2025 9:30 AM CDT) Report Final Report: Greater than or equal to 100,000 colonies/mL of Escherichia coli (.) Comment:Testing performed by : [facility], [address] [place] [address] Organism [facility] Urine, clean voided 06/28/2025 9:30 AM CDT 06/28/2025 4:41 PM CDT Narrative JAYME - 06/30/2025 11:09 AM CDT Testing performed by [facility] Microbiology Laboratory ([phone]) Organism Antibiotic Method Susceptibility Escherichia coli Ampicillin INTERPRETATION Susceptible Escherichia coli Cefazolin INTERPRETATION Susceptible Escherichia coli Nitrofurantoin INTERPRETATION Susceptible Escherichia coli Gentamicin INTERPRETATION Susceptible Escherichia coli Trimethoprim with Sulfamethoxazole IN TERPRETATION Susceptible Escherichia coli Meropenem INTERPRETATION Susceptible Escherichia coli Cefepime INTERPRETATION Susceptible Escherichia coli Ciprofloxacin INTERPRETATION Susceptible Escherichia coli Ceftazidime INTERPRETATION Susceptible Escherichia coli Ceftriaxone INTERPRETATION Susceptible Escherichia coli Piperacillin/Tazobactam INTERPRETATIO N Susceptible Escherichia coli Cephalexin INTERPRETATION Susceptible Escherichia coli Cefuroxime-axetil INTERPRETATION Susceptible Escherichia coli Cefdinir INTERPRETATION Susceptible Malathi Ramírez NP LAB MICROBIOLOGY - GENERAL [place] [id number] [address] Department [place] [address] from Last 3 Months Insurance [facility] ADV[facility]AGE [facility] ADV[facility]AGE Advance Directives For more information, please contact: [phone] * Full Code (Latest Code Status on File) Date Activated Date Inactivated Comments 03/07/2025 10:41 AM 03/07/2025 4:41 PM Care Teams Behavioral Health Assistant Relationship Specialty Start Date End Date Jaime Keating MD PCP - General 02/09/18
--- OUTSIDE RECORDS SUMMARY | 2025-07-24 10:59 | XMS_ITS | Encounter Summary ---
Author Organization [facility] Address [address] [place] [address] Care Team Providers Care Maintenance Supervisor Name Role Phone Jaime Keating MD Primary Care Provider [phone] Encounter Details Date Type Department Care Team (Late st Contact Info) Description 06/30/2025 Results Follow-Up [facility] at [address] [phone] Lashaun Jackson ZONING ENGINEER [address] [place] [address] [address] [place] [address] Urine culture Urine, clean voided Social History Tobacco Use Types Packs/Day Years Used Date Smoking Tobacco: Former AUDIT-C Answer Date Recorded Q1: How often [...] on file 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
== END 2025-07-24 09:31 | disposition home or self-care (01) ==
LOC: ANHFOHIMG 09:32
PROVIDERS: PCP Internal Medicine; Visit Provider Internal Medicine
DX: Z12.31 Encounter for screening mammogram for malignant neoplasm of breast (principal); R92.8 Other abnormal and inconclusive findings on diagnostic imaging of breast
CPT/HCPCS: 77063; 77067

== ENCOUNTER 2025-10-02 12:57 | Outpatient (CLI) | payer MEDICARE, SELFPAY ==
--- NOTE | ~2025-10-02 | MM_ITS ---
EXAMINATION: MM diagnostic irma BI w doron HISTORY: Additional imaging TECHNIQUE: Craniocaudal and mediolateral oblique 3-D tomosynthesis images were obtained and synthetic 2-D images were generated. CAD analysis was submitted and interpreted. COMPARISON: July 24 BREAST PARENCHYMAL COMPOSITION: Dense: The breasts are heterogeneously dense, which limits evaluation of small masses. FINDINGS: The findings questioned on the screening study do not persist with additional imaging. This is thought to have related to compression artifact. No suspicious masses are seen. There are no suspicious calcifications. No unexplained architectural distortion is seen. There are no skin or nipple abnormalities identified. There is no adenopathy seen on the images submitted. IMPRESSION: No mammographic evidence to suggest malignancy is seen. The patient may return to screening mammography as per ACR guidelines. BI-RADS 1 - Negative. Reviewed, dictated and finalized at location A. H FINISHER
--- OUTSIDE RECORDS SUMMARY | 2025-10-02 13:15 | XMS_ITS | Encounter Summary ---
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
--- OUTSIDE RECORDS SUMMARY | 2025-10-02 13:15 | XMS_ITS | Clinical Summary ---
Author Organization [facility] [address] Address [address] [place] [address] Care Team Providers Care Chemical Production Machine Operator Name Role Phone Jaime Keating MD Primary Care Provider [phone] Allergies Active Allergy Reactions Criticality Noted Date Comments Amoxicillin Rash Medium 02/09/2018 Atorvastatin Muscle pain Medium 05/03/2023 Biotin Rash Medium 02/09/2018 Cefaclor Rash Medium 02/09/2018 Doxycycline Mental status changes Low 05/03/2023 Erythromycin Other (See comments) Medium 02/09/2018 hypotension Shrimp Rash Medium 02/09/2018 Medications cyanocobalamin (Vitamin B-12) 1,000 mcg tabletIndications :Prevention of Vitamin B12 Deficiency Take 1 tablet [...] total) by mouth daily before breakfast Active esomeprazole DR (NexIUM) 40 mg capsule [...] for anxiety 90 tablet 06/28/20 25 Active venlafaxine (EFFEXOR) 75 mg tablet TAKE 1 TABLET BY MOUTH TWICE DAILY 120 tablet 5 10/02/20 25 Active venlafaxine (EFFEXOR) 75 mg tablet TAKE 1 TABLET BY MOUTH TWICE DAILY 120 tablet 5 01/05/20 25 025 Discontinued nitrofurantoin monohydrate (MACROBID) 100 mg capsuleIndication s:Urinary Tract/Genitourina ry Infection Take 1 capsule (100 mg total) by mouth 2 (two) times a day for 5 days 10 capsule 09/19/20 25 025 Active Problems Problem Noted Date Diagnosed Date Nausea and vomiting 03/01/2025 Abdominal pain 03/01/2025 Hiatal hernia 03/01/2025 Gastroesophageal reflux disease without esophagi tis 03/01/2025 Encounters Date Type Department Care Team Description 09/20/2025 Results Follow-Up [facility] at [address] [phone] [place] Urine culture Urine, clean voided 09/19/2025 10:24 AM [facility] - 09/19/2025 11:59 PM [facility] Hospital Encounter [address] [address] Acute cystitis with hematuria Discharge Disposition: Discharge to home or self care 09/19/2025 9:30 AM [facility] Office Visit [facility] at [address] [phone] Malathi Ramírez NP Acute cystitis with hematuria (Primary Dx) 08/06/2025 Results Follow-Up [facility] [address] [place] [phone] Jaime Keating MD SCAN - RADIOLOGY/IMAGING 07/25/2025 Orders Only [facility] [address] [place] [phone] Jaime Keating MD 07/24/2025 Orders Only [facility] [address] [phone] Jaime Keating MD from Last 3 Months Immunizations Immunization Administration [...] History Date Comments Anxiety Depression Thyroid disease Asthma Arthritis Family History Medical History Relation Name Comments [...] on file Legal Sex Female 12:45 PM [facility] Gender Identity Not on file Sexual Orientation Not on file Last Filed Vital Signs Vital Sign Reading Time Taken Comments Blood Pressure 155/65 09/19/2025 9:10 AM [facility] Pulse 75 09/19/2025 9:10 AM [facility] Temperature 36.7 C (98.1 F) 09/19/2025 9:10 AM [facility] Respiratory Rate 18 09/19/2025 9:10 AM [facility] Oxygen Saturation 98% 09/19/2025 9:10 AM [facility] Inhaled Oxygen Concentration - - Weight 61.8 kg (136 lb 3.2 oz) 09/19/2025 9:10 A M [facility] Height 164.6 cm (5' 4.8) 09/19/2025 9:10 AM [facility] Body Mass Index 22.8 09/19/2025 9:10 AM [facility] Plan of Treatment Scheduled Procedures Name Priority [...] Additional history exists Influenza Vaccine (#1) 2025 3, 06/21/2022, 07/17/2021, Additional history exists Osteoporosis Screening-Bone Density Scan 02/13/2026 02/14/2024 Fall Risk Assessment 03/07/2026 03/07/2025 Colon Cancer Screening-Colonoscopy 11/04/20332023 Pneumococcal vaccine 65+ Completed 08/08/2018, 11/04 Zoster Vaccine Completed 12/15/2021, 10/04, 11/08/2014 Procedures Procedure Name Priority Date/Time Associated Diagnosis Comments URINE CULTURE Routine 09/19/2025 10:24 AM [facility] Acute cystitis with hematuria POCT URINALYSIS DIPSTICK Routine 09/19/2025 9:35 AM [facility] Acute cystitis with hematuria SCAN - RADIOLOGY/IMAGING 07/25/2025 1:13 PM CDT SCAN - RADIOLOGY/IMAGING 07/24/2025 4:16 PM CDT from Last 3 Months Results * Urine culture Urine, clean voided (09/19/2025 10:24 AM [facility]) Report Final Report: Less than 100,000 colonies/mL (clinically insignificant growth based on current clinical standards) Comment:Testing performed by : [facility], [address] [place] [address] Organism (CLINICALLY INSIGNIFICANT GROWTH JAYME Urine, clean voided 09/19/2025 10:24 AM [facility] 09/19/2025 5:27 PM [facility] Narrative JAYME - 09/20/2025 7:20 PM [facility] Testing performed by [facility] Microbiology Laboratory ([phone]) us Malathi Ramírez [facility] MICROBIOLOGY - GENERAL ORD ERABLES Final Result JAYME [id number] [address] Department [place] [address] * (ABNORMAL) POCT urinalysis dipstick (09/19/2025 9:35 AM [facility]) Color, Urine, POC Yellow Clarity, ur, POC Cloudy(A) Clear Glucose, ur, POC Negative Negative Bilirubin, ur, POC Negative Negative Ketones, ur, POC Negative Negative Specific [place], POC 1.030 1.003 - 1.030 Blood, ur, POC Large(A) Negative pH, ur, POC 5.5 5.0 - 8.0 Protein, ur, POC 100.(A) Negative Urobilinogen, urine, POC 0.2 0.2 - 1.0 mg/dL Nitrite, ur, POC Negative Negative Leukocytes, ur, POC Trace(A) Negative Lot Number [id number] Urine 09/19/2025 9:35 AM [facility] Malathi Ramírez NP POINT OF CARE TEST ORDERABLES Final Result * SCAN - RADIOLOGY/IMAGING (07/25/2025 1:13 PM CDT) Anatomical Region Laterality Modality Other Jaime Keating MD Final Result * SCAN - RADIOLOGY/IMAGING (07/24/2025 4:16 PM CDT) Anatomical Region Laterality Modality Other Jaime Keating MD Final Result from Last 3 Months Insurance [facility] MEDICARE ADVANTAGE [employer] MEDICARE ADVANTAGE [facility] MEDICARE ADVANTAGE Advance Directives For more information, please contact: [phone] * Full Code (Latest Code Status on File) Date Activated Date Inactivated Comments 03/07/2025 10:41 AM 03/07/2025 4:41 PM Care Teams Chemical Production Machine Operator Relationship Specialty Start Date End Date Jaime Keating MD PCP - General 02/09/18
== END 2025-10-02 12:58 | disposition home or self-care (01) ==
PROVIDERS: PCP Internal Medicine; Visit Provider Internal Medicine
DX: R92.8 Other abnormal and inconclusive findings on diagnostic imaging of breast (principal)
CPT/HCPCS: 77062; 77066; G0279